=== PATIENT | female | born 1940 | race Caucasian/White ===

== ENCOUNTER → 2016-12-12 | Outpatient (CLI) | payer MEDICARE ==
[~2016-12-12] MED LIST: ASPIRIN81 M1 PO; BENAZEPRIL PO; CALCIUM + VITAM1 TAB PO; NORVASC PO; SYNTHROID PO; TRAMADOL HCL50 M1 PO; VITAMIN D-32000 UNIT PO; VOLTAREN75 MG PO; ZOCOR PO
--- NOTE | ~2016-12-12 | CR58 ---
[facility] A Service of [facility] & [facility] RADIOLOGY TEXT RESULTS PATIENT: HAMIDA BLACKMON LOCATION: [facility] : 42 UNIT #: [id number] AGE: [address]: Brenda Martin SEX: F ORDER DR: [id number] [facility] [address] [place], [place] [address] [id number] O MR#: [id number] Acc #: [id number] NAME: HAMIDA BLACKMON : 1940 SEX: F STUDY DATE/TIME: 12/12/2016 12:43 UNIT: [facility] ROOM: STUDY DESCRIPTION: CR Cervical Spine 2 or 3 Views Attending Physician: Brenda Martin A.P.R.N. Referring Physician: Brenda Martin A.P.R.N. Ordering Physician: Brenda Martin A.P.R.N. Primary Care Physician: Brenda Martin A.P.R.N. MEDICAL IMAGING REPORT This report is preliminary unless electronic signature is present EXAM 4 views cervical spine INDICATIONS Neck pain, stiffness for 1 week. FINDINGS No acute fracture or subluxation of the cervical spine is identified. Patient has really minimal degenerative change, most pronounced at C5-C6. There is no prevertebral soft tissue swelling. No aggressive osseous abnormalities are seen. IMPRESSION No acute disease. Dictated by... Stephanie Arce M.D. THIS IS AN ELECTRONICALLY VERIFIED REPORT Stephanie Arce M.D. at 12/13/2016 12:59 PM AFF/to TD: 12/12/2016 20:06 JOB #: [id number] MEDICAL IMAGING REPORT Page 1 of 1 COPY
--- NOTE | ~2016-12-12 | CR63 ---
[facility] A Service of [facility] & [facility] RADIOLOGY TEXT RESULTS PATIENT: HAMIDA BLACKMON LOCATION: [facility] : 42 UNIT #: [id number] AGE: [address]: Brenda Martin [employer] DESK CLERK SEX: F ORDER DR: [id number] [facility] [address] [place], [place] [address] [id number] O MR#: [id number] Acc #: [id number] NAME: HAMIDA BLACKMON : 1940 SEX: F STUDY DATE/TIME: 12/12/2016 12:35 UNIT: [facility] ROOM: STUDY DESCRIPTION: CR Chest 2 View Attending Physician: Brenda Martin A.P.R.N. Referring Physician: Brenda Martin A.P.R.N. Ordering Physician: Brenda Martin A.P.R.N. Primary Care Physician: Brenda Martni A.P.R.N. MEDICAL IMAGING REPORT This report is preliminary unless electronic signature is present EXAM PA and lateral chest radiograph 12/12/2016 INDICATIONS Right lateral mid rib pain with inspiration for 1 week. No trauma. FINDINGS Cardiomegaly is identified. There is no evidence of vascular congestion. There is some mild blunting of the left costophrenic angle. Trace effusion is not excluded. There is elevation of the right hemidiaphragm with some associated bronchovascular crowding. No definite acute infiltrates are seen.. 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 IMPRESSION 1. Blunting of the left costophrenic angle may reflect trace effusion. 2. Cardiomegaly without evidence of vascular congestion. No definite acute infiltrates are seen. Dictated by... Stephanie Arce M.D. THIS IS AN ELECTRONICALLY VERIFIED REPORT Stephanie Arce M.D. at 12/13/2016 12:59 PM NICHOLE/marco TD: 12/12/2016 17:40 JOB #: [id number] MEDICAL IMAGING REPORT Page 1 of 1 COPY
--- NOTE | ~2016-12-12 | CR243 ---
[facility] A Service of [facility] & [facility] RADIOLOGY TEXT RESULTS PATIENT: HAMIDA BLACKMON LOCATION: [facility] : 42 UNIT #: [id number] AGE: [address]: Brenda Martin SEX: F ORDER DR: [id number] [facility] [address] [place], [place] [address] [id number] O MR#: [id number] Acc #: [id number] NAME: HAMIDA BLACKMON : 1940 SEX: F STUDY DATE/TIME: 12/12/2016 12:46 UNIT: [facility] ROOM: STUDY DESCRIPTION: CR Thoracic Spine 3 Views Attending Physician: Brenda Martin A.P.R.N. Referring Physician: Brenda Martin A.P.R.N. Ordering Physician: Brenda Martin A.P.R.N. Primary Care Physician: Brenda Martin A.P.R.N. MEDICAL IMAGING REPORT This report is preliminary unless electronic signature is present EXAM 3 views thoracic spine INDICATIONS Back pain. FINDINGS No acute fracture or subluxation of the thoracic spine is identified. Patient has chronic compression deformity noted at what I think is probably T12. This has been present on exams dating back to 2012. Thoracic vertebral body alignment appears within normal limits. There is atherosclerotic involvement of the abdominal aorta. No aggressive osseous abnormalities are seen. IMPRESSION Chronic compression deformity noted at T12. No acute findings Dictated by... Stephanie Arce M.D. THIS IS AN ELECTRONICALLY VERIFIED REPORT Stephanie Arce M.D. at 12/13/2016 12:59 PM AFF/rnr TD: 12/12/2016 20:24 JOB #: [id number] MEDICAL IMAGING REPORT Page 1 of 1 COPY
== END | disposition home or self-care (01) ==
LOC: CRAD 12:21
DX: M54.2 Cervicalgia (principal); M54.6 Pain in thoracic spine; R07.81 Pleurodynia; M43.8X4 Other specified deforming dorsopathies, thoracic region; I51.7 Cardiomegaly
CPT/HCPCS: 71020; 72040; 72072

== ENCOUNTER → 2016-12-13 | Outpatient (CLI) | payer OTHER ==
--- NOTE | ~2016-12-13 | BD1 ---
[facility] A Service of [facility] & [facility] RADIOLOGY TEXT RESULTS PATIENT: HAMIDA BLACKMON LOCATION: [facility] : 42 UNIT #: [id number] AGE: [address]: Brenda Martin SEX: F ORDER DR: [id number] [place] [id number] O MR#: [id number] Acc #: [id number] NAME: HAMIDA BLACKMON : 1940 SEX: F STUDY DATE/TIME: 12/13/2016 10:14 UNIT: [facility] ROOM: STUDY DESCRIPTION: Dexa Bone Dens 1+ Site Attending Physician: Brenda Martin A.P.R.N. Referring Physician: Brenda Martin A.P.R.N. Ordering Physician: Brenda Martin A.P.R.N. Primary Care Physician: Brenda Martin A.P.R.N. MEDICAL IMAGING REPORT This report is preliminary unless electronic signature is present. EXAM DXA scan 12/13/2016 HISTORY Status post menopause with no hormone replacement therapy. Osteopenia. Thyroid medication Levothyroxine use for several years. Steroid use. FINDINGS Bone mineral density in the lumbar spine from L1-L4 is 1.03 g/cm2 which is 1.2 standard deviations below the mean when compared to the young adult reference population which is characteristic of osteopenia. This is 0.4 standard deviations above the mean when compared to the age-matched population. Bone mineral density in the left femoral neck was 0.854 g/cm2 which is 1.3 standard deviations below the mean when compared to the young adult reference population which is characteristic of osteopenia. This is 0.5 standard deviations above the mean when compared to the age-matched population. Bone mineral density in the right femoral neck was 0.796 g/cm2 which is 1.7 standard deviations below the mean when compared to the young adult reference population which is characteristic of osteopenia. This is 0.1 standard deviations above the mean when compared to the age-matched population. IMPRESSION Bone mineral density in the lumbar spine and the hips bilaterally characteristic of osteopenia. Dictated by... Erik Rodas M.D. THIS IS AN ELECTRONICALLY VERIFIED REPORT Erik Rodas M.D. at 12/14/2016 9:34 AM KRT/rnr [facility] A Service of [facility] & [facility] RADIOLOGY TEXT RESULTS PATIENT: HAMIDA BLACKMON LOCATION: [facility] : 42 UNIT #: [id number] AGE: [address]: Brenda Martin SEX: F ORDER DR: TD: 12/13/2016 12:43 JOB #: [id number] MEDICAL IMAGING REPORT Page 1 of 1
== END | disposition home or self-care (01) ==
LOC: SRAD 10:04
DX: M81.0 Age-related osteoporosis without current pathological fracture (principal); Z78.0 Asymptomatic menopausal state
CPT/HCPCS: 77080

== ENCOUNTER → 2016-12-17 | Outpatient (CLI) | payer MEDICARE ==
--- NOTE | ~2016-12-17 | MY11 ---
[facility] A Service [facility] RADIOLOGY TEXT RESULTS PATIENT: HAMIDA BLACKMON LOCATION: [facility] : 42 UNIT #: [id number] AGE: [address]: Brenda Martin SEX: F ORDER DR: [id number] [place] [id number] O MR#: [id number] Acc #: [id number] NAME: HAMIDA BLACKMON : 1940 SEX: F STUDY DATE/TIME: 12/17/2016 11:34 UNIT: [facility] ROOM: STUDY DESCRIPTION: MY Mammogram Screening Dig Medardo Attending Physician: Brenda Martin A.P.R.N. Referring Physician: Brenda Martin A.P.R.N. Ordering Physician: Brenda Martin A.P.R.N. Primary Care Physician: Brenda Martin A.P.R.N. MEDICAL IMAGING REPORT This report is preliminary unless electronic signature is present. EXAM Digital screening mammogram 12/17/2016 [facility] HISTORY 76-year-old woman, no risk elevation. Annual screen. COMPARISON 06/23/2009, 07/14/2010, 07/16/2011 TECHNIQUE Digital imaging of each breast was completed utilizing screening protocol. Review includes FDA-approved CAD device. FINDINGS Breast parenchyma is fatty replaced. Occasional subcentimeter circumscribed nodule noted in each breast stable. I see no suspicious mass. There are no interval occurring microcalcifications and no suspicious architectural deformity. IMPRESSION Negative mammogram. Annual screening recommended. Patient's over the age of 40 are entered into a reminder system with target due date for the next mammogram. A result letter will be sent to the patient. BIRADS: 1 Negative Dictated by... Naseem Rome M.D. [facility] A Service [facility] RADIOLOGY TEXT RESULTS PATIENT: HAMIDA BLACKMON LOCATION: [facility] : 42 UNIT #: [id number] AGE: [address]: Brenda Martin SEX: F ORDER DR: THIS IS AN ELECTRONICALLY VERIFIED REPORT Naseem Rome M.D. at 12/17/2016 3:14 PM JOCELYNB/omari TD: 12/17/2016 12:58 JOB #: [id number] MEDICAL IMAGING REPORT Page 1 of 1
== END | disposition home or self-care (01) ==
LOC: SMAM 11:03
DX: Z12.31 Encounter for screening mammogram for malignant neoplasm of breast (principal)
CPT/HCPCS: G0202